=== PATIENT | female | born 1960 | race African-American/Black ===

== ENCOUNTER 2021-04-14 18:43 | Emergency (ER) | payer MEDICARE, MEDICAID ==
[~2021-04-14] VITALS: Ht 170.2 cm; Wt 84.1 kg
[~2021-04-14 18:43] MED LIST: BENZ1TAB70 PO; CLOZ25TA PO; FLUP10TA8 PO; GLIP10TA9 PO; IBUP-2077 PO; NORE1TAB28 PO; PROP20TA7 PO
[2021-04-14 18:44] VITALS: BP 124/78
== END 2021-04-14 21:49 | disposition home or self-care (01) ==
LOC: EMS 18:51
DX: F20.9 Schizophrenia, unspecified (principal); E11.9 Type 2 diabetes mellitus without complications; Z79.899 Other long term (current) drug therapy
CPT/HCPCS: 99284; Z7502

== ENCOUNTER 2021-10-28 15:51 | Emergency (ER) | payer MEDICARE, MEDICAID ==
[~2021-10-28] VITALS: Ht 165.1 cm; Wt 65.9 kg
[2021-10-28] MEDS ORDERED: ATOR40TA28 PO (16:09)
[2021-10-28] MEDS ORDERED: LISI-892 PO (16:09)
[2021-10-28] MEDS ORDERED: GABA-1181 PO (16:09)
[2021-10-28 17:20] VITALS: BP 140/78
== END 2021-10-28 17:45 | disposition home or self-care (01) ==
LOC: EMS 15:51
DX: U07.1 COVID-19 (principal); E11.9 Type 2 diabetes mellitus without complications; F20.9 Schizophrenia, unspecified; F41.9 Anxiety disorder, unspecified; D25.9 Leiomyoma of uterus, unspecified; Z86.59 Personal history of other mental and behavioral disorders; Z90.710 Acquired absence of both cervix and uterus; Z87.448 Personal history of other diseases of urinary system
CPT/HCPCS: 99281; 99283

== ENCOUNTER 2021-11-02 18:11 | Emergency (ER) | payer MEDICARE, MEDICAID ==
[~2021-11-02] VITALS: Ht 170.2 cm; Wt 63.6 kg
[~2021-11-02 18:11] MED LIST changes: +ATOR40TA28 PO; +GABA-1181 PO; +LISI-892 PO
[2021-11-02 22:07] VITALS: BP 118/70
== END 2021-11-02 22:51 | disposition home or self-care (01) ==
LOC: EMS 18:11
DX: S90.822A Blister (nonthermal), left foot, initial encounter (principal); F41.9 Anxiety disorder, unspecified; E11.9 Type 2 diabetes mellitus without complications; F20.9 Schizophrenia, unspecified; Z79.899 Other long term (current) drug therapy; X58.XXXA Exposure to other specified factors, initial encounter; Y93.89 Activity, other specified; Y92.89 Other specified places as the place of occurrence of the external cause; Y99.8 Other external cause status
CPT/HCPCS: 99283

== ENCOUNTER 2022-01-14 13:17 | Emergency (ER) | payer MEDICARE, MEDICAID ==
[~2022-01-14] VITALS: Ht 170.2 cm; Wt 68.2 kg
[2022-01-14] MEDS ORDERED: RISP2TAB45 PO (13:34)
[2022-01-14] MEDS ORDERED: LISI5TAB21 PO (13:34)
[2022-01-14] MEDS ORDERED: BENZ1TAB96 PO (13:34)
[2022-01-14] MEDS ORDERED: HYDR-4527 PO (14:59)
[2022-01-14 15:00] VITALS: BP 156/90
== END 2022-01-14 15:10 | disposition home or self-care (01) ==
LOC: EMS 13:24
DX: Z76.0 Encounter for issue of repeat prescription (principal); E11.9 Type 2 diabetes mellitus without complications; F20.9 Schizophrenia, unspecified; F31.9 Bipolar disorder, unspecified; F43.10 Post-traumatic stress disorder, unspecified; F41.9 Anxiety disorder, unspecified; Z87.440 Personal history of urinary (tract) infections; Z90.710 Acquired absence of both cervix and uterus
CPT/HCPCS: 82962; 99281

== ENCOUNTER 2022-01-21 08:56 | Emergency (ER) | payer MEDICARE, MEDICAID ==
[~2022-01-21] VITALS: Ht 167.6 cm; Wt 68.2 kg
[~2022-01-21 08:56] MED LIST changes: -BENZ1TAB70 PO; +BENZ1TAB96 PO; +HYDR-4527 PO; -LISI-892 PO; +LISI5TAB21 PO; +RISP2TAB45 PO
[2022-01-21 09:06] VITALS: BP 117/84
[2022-01-21] MEDS ORDERED: HYDR-4527 PO (11:20)
[2022-01-21] MEDS ORDERED: ARIP5TAB37 PO (11:21)
[2022-01-21] MEDS ORDERED: BENZ1TAB96 PO (11:22)
== END 2022-01-21 11:39 | disposition home or self-care (01) ==
LOC: EMS 08:58
DX: F20.9 Schizophrenia, unspecified (principal); D25.9 Leiomyoma of uterus, unspecified; E11.9 Type 2 diabetes mellitus without complications; F41.9 Anxiety disorder, unspecified; F43.10 Post-traumatic stress disorder, unspecified; Z87.448 Personal history of other diseases of urinary system; Z90.710 Acquired absence of both cervix and uterus
CPT/HCPCS: 99281; Z7502

== ENCOUNTER 2022-02-15 16:05 | Emergency (ER) | payer MEDICARE, MEDICAID ==
[~2022-02-15] VITALS: Ht 170.2 cm; Wt 77.3 kg
[~2022-02-15 16:05] MED LIST changes: +ARIP5TAB37 PO
[2022-02-15 17:19] VITALS: BP 163/71
== END 2022-02-15 18:29 | disposition left against medical advice (07) ==
LOC: EMS 17:39
DX: M79.602 Pain in left arm (principal); Z53.21 Procedure and treatment not carried out due to patient leaving prior to being seen by health care provider